=== PATIENT | female | born 1980 | race Two or more races ===

== ENCOUNTER 2018-10-04 14:15 | Inpatient (IN) | payer OTHER ==
[~2018-10-04] VITALS: Ht 162.6 cm; Wt 133.0 kg
== END 2018-10-13 18:59 | disposition home or self-care (01) | DRG 331 ==
LOC: O/R 10-10 11:25 → RECOVERY 10-10 14:15 → SURH 10-10 20:36 → RECOVERY 10-10 21:30 → SURH 10-13 18:59
PROVIDERS: Colon & Rectal Surgery
PROC: 0DTP4ZZ Resection of Rectum, Percutaneous Endoscopic Approach (ICD-10-PCS; 2018-10-10)
PROC: 07TC4ZZ Resection of Pelvis Lymphatic, Percutaneous Endoscopic Approach (ICD-10-PCS; 2018-10-10)
PROC: 0DJD8ZZ Inspection of Lower Intestinal Tract, Via Natural or Artificial Opening Endoscopic (ICD-10-PCS; 2018-10-10)
PROC: 0DTN4ZZ Resection of Sigmoid Colon, Percutaneous Endoscopic Approach (ICD-10-PCS; principal; 2018-10-10 21:30)
DX: N80.5 Endometriosis of intestine (principal); D64.89 Other specified anemias